=== PATIENT | male | born 1990 | race Caucasian/White ===

== ENCOUNTER 2020-02-08 01:49 | Emergency (ER) | payer OTHER ==
[~2020-02-08] VITALS: Ht 175.3 cm; Wt 177.0 kg
--- NOTE | 2020-02-08 02:04 | NUR ---
FIRST PT CONTACT: PT SITTING UP IN GURNEY, PT IN GOWN, APPEARS SLIGHTLY UNCOMFORTABLE, PT STATES HE IS HAVING A GOUT FLARE UP AND RAN OUT OF MEDS. REPORTS "8/10 LOWER LEG PAIN ON BOTH LEGS". PT NAD, AND DENIES ANY OTHER SYMPTOMS AT THIS TIME. PT CMS INTACT. WCTM. WAITING FOR MD MARCUS.
[2020-02-08] MEDS ORDERED: HYDROcodone/APAP 5/325 TABLET PO ONE (02:30)
[2020-02-08] MEDS ORDERED: MIDAZOLAM 1 MG/ML, 5ML IVPush ONE (02:30)
[2020-02-08] MEDS ORDERED: COLCHICINE 0.6 MG CAPSULE PO ONE ×2 (02:30→03:30)
--- NOTE | 2020-02-08 02:51 | NUR ---
radiology at [facility]. pt resting in [facility], no change in condition, nad, wctm. waiting on rad report
[2020-02-08] MEDS ORDERED: OXYcodone/APAP 5/325MG TABLET ONE (03:16)
[2020-02-08] MEDS ORDERED: COLCHICINE 0.6 MG CAPSULE ONE (03:17)
--- NOTE | 2020-02-08 03:21 | NUR ---
PT AMBULATED TO AND FROM RESTROOM TO URINATE, PT NOTED TO BE LIMPING SLIGHTLY BUT GAIT WAS BALANCED. PT MEDICATED PER SEP. WAITING FOR RAD RESULTS. CHRISTOPHER. JESSE.
[2020-02-08] MEDS ORDERED: OXYcodone/APAP 5/325MG TABLET PO ONE (03:30)
[2020-02-08 03:35] VITALS: BP 163/79
--- NOTE | 2020-02-08 04:05 | NUR ---
Patient given discharge instructions and they have confirmed that they understand the instructions. Patient ambulatory with SLIGHT LIMP BUT BALANCED GAIT. PT NAD, VSS, STATES PAIN IS DECREASED. DENIES ADDITIONAL NEEDS OR QUESTIONS. STATES HIS GIRLFRIEND IS PICKING HIM UP. GIVEN WORK NOTE PER REQUEST. NO BELONGINGS LEFT IN ROOM AT TIME OF DC.
== END 2020-02-08 04:06 | disposition home or self-care (01) ==
LOC: ED 02:55
DX: M10.072 Idiopathic gout, left ankle and foot (principal); M10.071 Idiopathic gout, right ankle and foot; M13.0 Polyarthritis, unspecified; Z87.891 Personal history of nicotine dependence
CPT/HCPCS: 99283